=== PATIENT | male | born 1950 | race Caucasian/White ===

== ENCOUNTER 2018-11-21 07:07 | Outpatient (CLI) | payer BC, SELFPAY ==
[2018-11-21 08:07] LABS: Hemoglobin A1C 6.6 % (4.5-6.2)
[2018-11-21 09:13] LABS: Anion Gap 10.7 mmol/L (3-11); BUN 16 mg/dL (7-18); CO2 26.3 mmol/L (21.0-32.0); CREATININE 0.89 mg/dL (0.70-1.30); Calcium 9.2 mg/dL (8.5-10.1); Chloride 103 mmol/L (98-107); Cholesterol 181 mg/dL (50-200); Glucose 101 mg/dL (70-100); HDL Cholesterol 69 mg/dL (40-60); LDL CHOLESTEROL 92 mg/dL (<100); Potassium 4.6 mmol/L (3.5-5.1); Sodium 140 mmol/L (136-145); Triglyceride 83 mg/dL (30-150)
== END 2018-11-21 07:27 ==
PROVIDERS: PCP Family Medicine; Visit Provider Family Medicine
DX: I10 Essential (primary) hypertension (principal); E11.9 Type 2 diabetes mellitus without complications
CPT/HCPCS: 36415; 80048; 80061; 83721; 83036

== ENCOUNTER 2019-11-30 07:09 | Outpatient (CLI) | payer BC, SELFPAY ==
[2019-11-30 08:37] LABS: Anion Gap 8.5 mmol/L (3-11); BUN 16 mg/dL (7-18); CO2 28.5 mmol/L (21.0-32.0); CREATININE 0.88 mg/dL (0.70-1.30); Calcium 9.4 mg/dL (8.5-10.1); Calculated LDL 85 mg/dL (<100); Chloride 103 mmol/L (98-107); Cholesterol 175 mg/dL (<200); Glucose 116 mg/dL (74-106); HDL Cholesterol 75 mg/dL (40-60); Potassium 4.9 mmol/L (3.5-5.1); Sodium 140 mmol/L (136-145); Triglyceride 75 mg/dL (<150)
== END 2019-11-30 07:29 ==
PROVIDERS: PCP Family Medicine; Visit Provider Family Medicine
DX: E78.00 Pure hypercholesterolemia, unspecified (principal); I10 Essential (primary) hypertension
CPT/HCPCS: 36415; 80048; 80061

== ENCOUNTER 2019-11-30 14:15 | Outpatient (CLI) | payer BC, SELFPAY ==
--- NOTE | 2019-11-30 13:03 | DI.RAD_ITS ---
EXAM: XR FINGER LT LITTLE CLINICAL HISTORY: Swelling and pain left 5th finger M79.645. TECHNIQUE: 2D digital imaging was performed. COMPARISON: None. FINDINGS: BONES: No acute fracture is present. No bony destructive lesion is seen. JOINTS: At the proximal interphalangeal joint, there are prominent hypertrophic changes and marked na rrowing of the joint space. There are also erosive changes centrally. At the DIP joint, mild periar ticular spurring is noted. SOFT TISSUE: Soft tissue swelling. 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 DATA REPOSITORY: RADIATION DOSE DELIVERED:
== END 2019-11-30 14:35 ==
PROVIDERS: PCP Family Medicine; Visit Provider Family Medicine
DX: M79.645 Pain in left finger(s) (principal); M19.042 Primary osteoarthritis, left hand
CPT/HCPCS: 73140

== ENCOUNTER 2020-08-13 04:10 | Outpatient (CLI) | payer BC, SELFPAY ==
[2020-08-16 19:12] LABS: Patient Race White; SARS-CoV-2 RNA Undetected (Undetected); SARS-CoV-2 Specimen Source Nasal
== END 2020-08-13 04:30 ==
PROVIDERS: PCP Family Medicine; Visit Provider Family Medicine
DX: Z11.59 Encounter for screening for other viral diseases (principal)
CPT/HCPCS: U0003

== ENCOUNTER 2020-11-29 03:37 | Outpatient (CLI) | payer BC, SELFPAY ==
[2020-11-29 09:25] LABS: ALT 39 U/L (16-63); AST 18 U/L (15-37); Albumin 4.4 g/dL (3.4-5.0); Alkaline Phosphatase 50 U/L (46-116); Anion Gap 8.8 mmol/L (3-11); BUN 19 mg/dL (7-18); Bilirubin, Total 0.4 mg/dL (0.2-1.0); CO2 28.2 mmol/L (21.0-32.0); CREATININE 0.9 mg/dL (0.70-1.30); Calcium 9.4 mg/dL (8.5-10.1); Calculated LDL 100 mg/dL (<100); Chloride 105 mmol/L (98-107); Cholesterol 184 mg/dL (<200); Glucose 120 mg/dL (74-106); HDL Cholesterol 75 mg/dL (40-60); Potassium 5.5 mmol/L (3.5-5.1); Sodium 142 mmol/L (136-145); Total Protein 7.7 g/dL (6.4-8.2); Triglyceride 48 mg/dL (<150)
== END 2020-11-29 03:38 | disposition home or self-care (01) ==
LOC: LBO 03:37
PROVIDERS: PCP Family Medicine; Visit Provider Physician Assistant
DX: I10 Essential (primary) hypertension (principal)
CPT/HCPCS: 36415; 80053; 80061

== ENCOUNTER 2020-12-03 18:05 | Outpatient (REF) | payer BC, SELFPAY ==
[2020-12-03 18:32] LABS: COMMENT (LAB VIEW ONLY) 190.34 mg/dL
== END 2020-12-03 18:06 | disposition home or self-care (01) ==
LOC: LBN 18:05
PROVIDERS: PCP Family Medicine; Visit Provider Physician Assistant
DX: E11.9 Type 2 diabetes mellitus without complications (principal)
CPT/HCPCS: 82043; 82570

== ENCOUNTER 2020-12-06 03:33 | Outpatient (CLI) | payer BC, SELFPAY ==
[2020-12-06 10:04] LABS: Potassium 4.7 mmol/L (3.5-5.1)
[2020-12-06 10:09] LABS: COMMENT (LAB VIEW ONLY) 75.84 mg/dL
[2020-12-06 10:10] LABS: Microalb ug/mg Crea 127.8 ug/mg Cr
== END 2020-12-06 03:34 | disposition home or self-care (01) ==
LOC: LBO 03:33
PROVIDERS: Nurse Practitioner Family; PCP Family Medicine; Visit Provider Physician Assistant
DX: E87.5 Hyperkalemia (principal); R80.9 Proteinuria, unspecified
CPT/HCPCS: 36415; 82043; 82570; 84132

== ENCOUNTER 2021-05-30 03:38 | Outpatient (CLI) | payer MEDICARE, SELFPAY ==
[2021-05-30 08:05] LABS: Hemoglobin A1C 5.8 % (<5.7)
[2021-05-30 09:00] LABS: COMMENT (LAB VIEW ONLY) 85.73 mg/dL
[2021-05-30 09:01] LABS: Microalb ug/mg Crea 105.8 ug/mg Cr
[2021-05-30 09:03] LABS: ALT 36 U/L (16-63); AST 19 U/L (15-37); Alkaline Phosphatase 40 U/L (46-116); Anion Gap 6.4 mmol/L (3-11); BUN 20 mg/dL (7-18); Bilirubin, Total 0.4 mg/dL (0.2-1.0); CO2 29.6 mmol/L (21.0-32.0); CREATININE 0.9 mg/dL (0.70-1.30); Calcium 8.8 mg/dL (8.5-10.1); Chloride 106 mmol/L (98-107); Glucose 107 mg/dL (74-106); Sodium 142 mmol/L (136-145); Total Protein 6.9 g/dL (6.4-8.2)
== END 2021-05-30 03:39 | disposition home or self-care (01) ==
LOC: LBO 03:38
PROVIDERS: PCP Family Medicine; Visit Provider Family Medicine
DX: E11.9 Type 2 diabetes mellitus without complications (principal)
CPT/HCPCS: 36415; 80053; 82043; 82570; 83036

== ENCOUNTER 2021-07-21 02:02 | Outpatient (CLI) | payer MEDICARE, BC, SELFPAY ==
[2021-07-21 11:16] LABS: Source Nasal/Nares
[2021-07-21 14:48] LABS: COVID-19 PCR Negative (Negative)
== END 2021-07-21 02:03 | disposition home or self-care (01) ==
LOC: LBO 02:03
PROVIDERS: PCP Family Medicine; Visit Provider Surgery
DX: Z20.822 Contact with and (suspected) exposure to COVID-19 (principal); Z01.818 Encounter for other preprocedural examination
CPT/HCPCS: 87635

== ENCOUNTER 2021-10-29 09:47 | Outpatient (CLI) | payer MEDICARE, BC, SELFPAY ==
--- NOTE | 2021-10-29 08:00 | DI.RAD_ITS ---
Exam(s) XR WRIST RT COMPLETE EXAM: XR WRIST RT COMPLETE CLINICAL HISTORY: pain. TECHNIQUE: 2D digital imaging was performed. COMPARISON: No exams were available for comparison FINDINGS: BONES: No acute fracture is present. No bony destructive lesion is seen. JOINTS: There is mild dorsal tilt of the lunate. The scapholunate joint is not well profiled. There is severe narrowing of the joint space between the distal radius and scaphoid. There is spurring of the distal radius. There is also mild to moderate narrowing and spurring at the 1st carpal metacarp al joint SOFT TISSUE: Normal. IMPRESSION: Degenerative changes of the radial carpal and 1st carpometacarpal joints. DATA REPOSITORY: RADIATION DOSE DELIVERED:
== END 2021-10-29 09:48 | disposition home or self-care (01) ==
LOC: DIORS 09:48
PROVIDERS: PCP Family Medicine; Referring Provider Family Medicine; Visit Provider Student in an Organized Health Care Education/Training Program
DX: M25.531 Pain in right wrist (principal); M18.11 Unilateral primary osteoarthritis of first carpometacarpal joint, right hand; M77.8 Other enthesopathies, not elsewhere classified; M65.342 Trigger finger, left ring finger; M67.431 Ganglion, right wrist
CPT/HCPCS: 20550; 20600; 99213; 73110; J1030

== ENCOUNTER 2021-12-01 04:02 | Outpatient (CLI) | payer MEDICARE, SELFPAY ==
[2021-12-01 09:36] LABS: Source Nasal/Nares
[2021-12-01 12:56] LABS: COVID-19 PCR Negative (Negative)
== END 2021-12-01 04:03 | disposition home or self-care (01) ==
PROVIDERS: PCP Family Medicine; Visit Provider Student in an Organized Health Care Education/Training Program
DX: Z20.822 Contact with and (suspected) exposure to COVID-19 (principal); Z01.818 Encounter for other preprocedural examination
CPT/HCPCS: 87635; U0005

== ENCOUNTER 2021-12-02 12:26 | Day surgery (SDC) | payer MEDICARE, SELFPAY ==
[2021-12-02 12:56] VITALS: BP 155/93; PULSE 62; RESP 16; TEMP 36.5; O2SAT 98
--- NOTE | 2021-12-02 12:56 | W.ANESPRE ---
General Info Date of Service Date Performed: 12/02/21 Height: 6 ft 6 in Weight: 109.769 kg Body Mass Index (BMI): 27.9 Surgical Procedure: Operation Date: 12/02/21 15:25 Proposed Procedure Side Surgeon p Wrist Ganglion Cyst Removal Right Kannan Mcdonough MD Meds Allergies and Home Medications Allergies Allergy/AdvReac Type Severity Reaction Status Date / Time No Known Allergies Allergy Verified 12/02/21 12:48 Home Medication Medication Instructions Recorded aspirin 81 mg tablet,delayed 81 mg PO DAILY tab-cap 12/12/12 release (Aspir-) adjuvant AS01B (PF)vial 1 of 2 0.5 ml IM .COMPLEX #0.5 ml 06/04/21 (Shingrix Adjuvant Component-PF) losartan 25 mg tablet 25 mg PO DAILY #90 tab-cap 11/28/21 simvastatin 40 mg tablet 20 mg PO DAILY #45 tab-cap 11/28/21 metformin 500 mg 24 hr 1,000 mg PO QAM 12/02/21 tablet,extended release Current Visit Medications: Current Medications Generic Name Dose Route Start Last Admin Trade Name Freq PRN Reason Stop Dose Admin Ringer's Solution 1,000 mls @ 80 mls/hr 12/02/21 06:00 IV 12/25/21 23:59 INFUSION KODI Cefazolin Sodium/Dextrose 2 gm in 50 mls @ 100 mls/hr 12/02/21 06:00 Ancef Duplex IVPB 12/02/21 23:59 PREOP KODI IV Miscellaneous Supplies 1 each 12/02/21 06:00 Iv Access IV 12/25/21 23:59 DIRECTED KODI Sodium Chloride 0 ml 12/02/21 06:00 Normal Saline Flush 10 Ml Syr IV 12/25/21 23:59 PRN PRN Sodium Chloride 0 ml 12/02/21 06:00 Normal Saline 10 Ml Vial IJ 12/25/21 23:59 DIRECTED PRN Sterile Water 0 ml 12/02/21 06:00 Water,Injection,Sterile 10 Ml Vial IJ 12/25/21 23:59 DIRECTED PRN PFSH Active Problems Active Problems: Problem Status Onset Code Hypercholesterolemia 12/15/12 E78.00 Essential hypertension 07/26/15 I10 Osteoarthritis of hands, bilateral M19.041, M19.042 Asymptomatic superficial varicosities of both lower extremities I83.93 Superficial phlebitis and thrombophlebitis of right lower extremity I80.01 Serum potassium elevated E87.5 Diabetes mellitus with microalbuminuria, without long-term current use of insulin E11.29, R80.9 Trigger finger, left ring finger M65.342 Ganglion cyst of dorsum of right wrist M67.431 Medical History Medical History Right calf pain was torn gastrocnemius muscle Surgical History Surgical History (Updated 12/02/21 @ 12:53 by Brenda Cardoso) History of eyelid surgery bilateral Status post umbilical hernia repair, follow-up exam Tobacco Smoking/Tobacco Use Status: Never Passive smoking exposure: No Alcohol Alcohol Intake: current Alcohol intake frequency: 0-2 drinks per day Alcohol type: hard liquor Substance Use Substance use: Never Substance use type: does not use Vital Signs and Lab Results Vital Signs Most Recent Vital Signs in EMR: Temp Pulse Resp BP Pulse Ox 36.5 C 62 16 155/93 H 98 12/02/21 12:56 12/02/21 12:56 12/02/21 12:56 12/02/21 12:56 12/02/21 12:56 Lab Results Blood Type / Crossmatch: No Data to Display Complete Blood Count: No Data to Display Complete Metabolic Panel: No Data to Display Liver Function Panel: No Data to Display Coagulation Panel: No Data to Display Cardiac Panel: No Data to Display Arterial Blood Gas: No Data to Display Venous Blood Gas: No Data to Display Pancreas Panel: No Data to Display Thyroid Panel: No Data to Display Infectious Disease: Coronavirus (COVID-19)(PCR) Negative (Negative) 12/01/21 08:30 12/01/21 Coronavirus 2019 Source Nasal/Nares 12/01/21 08:30 12/01/21 Blood Cultures: No Data to Display Toxicology Panel: No Data to Display Anesthesia Assessment and Plan Anesthesia History Personal History: No History of Anesthesia Complications Family History: No Family History of Anesthesia Complications Exercise Tolerance Exercise Tolerance: Metabolic Equivalents>4 Cardiac & Pulmonary Exam Cardiac Exam: Normal S1/S2 Heart Sounds Pulmonary Exam: Clear Bilateral Breath Sounds Implantable Cardiac Device Does patient have a Pacemaker or an ICD?: No Airway Exam Known Difficult Airway: No Mallampati Class: 1 Mouth Opening: Normal (> 3cm) Thyromental Distance: Greater than 3 cm Neck Range of Motion: Full ROM Neck Circumference: Normal Teeth Condition: Normal Dentition ASA Classification ASA Score: ASA 2 Emergency Case?: No NPO Status NPO Status: NPO Clears >2 hours, Solids >8 hours Anesthesia Plan Resuscitation Status: Full Code Anesthesia Technique: General Anesthesia Airway Planned: Natural Airway Monitors Used: Standard Monitors Preoperative Comments:: 71 yo male for ganglion cyst removal. Sig PMHx: HTN (losartan), DM (metformin), never smoker, occ Etoh.
[2021-12-02] MEDS: Lactated Ringers 1,000 ML 80 ML IV (13:15)
[2021-12-02 13:29] VITALS: BMI 27.9
--- NOTE | 2021-12-02 14:18 | W.PREOPHP ---
Assessment and Plan Assessment and plan (1) Ganglion cyst of volar aspect of right wrist: Status: Acute Assessment and plan: Josue is a 71-year-old who has a volar wrist ganglion cyst about the right wrist. He has had this for some time and it continues interfere daily activities and causes some pain. We had a previous discussion in the office about treatment options and he elects to proceed with excision. I reviewed the risk of the procedure to include bleeding, infection, pain, stiffness, recurrence, damage nerves and vessels. Despite these risk, he elects to proceed. History of Present Illness Narrative: Josue is a 71-year-old male who has a volar wrist cyst about the right hand. Please see previous office note for complete details of his history. He has had intermittent pain, especially at night, about the volar aspect of his right wrist with a notable cyst. He denies numbness or tingling. He denies previous surgery. He has had no changes to his health. COVID-19 negative. Review of Systems All systems reviewed & are unremarkable except as noted in HPI and below PFSH All Active Problems (Updated 12/02/21 @ 14:19 by Kannan Mcdonough MD) Ganglion cyst of volar aspect of right wrist (Acute) Hypercholesterolemia (Chronic 12/15/12) Essential hypertension (Chronic 07/26/15) Osteoarthritis of hands, bilateral (Chronic) Asymptomatic superficial varicosities of both lower extremities (Acute) Superficial phlebitis and thrombophlebitis of right lower extremity (Acute) Serum potassium elevated (Acute) Diabetes mellitus with microalbuminuria, without long-term current use of insulin (Chronic) Trigger finger, left ring finger (Acute) injection: 10/29/2021 Ganglion cyst of dorsum of right wrist (Acute) Medical History Right calf pain was torn gastrocnemius muscle Surgical History History of eyelid surgery bilateral Status post umbilical hernia repair, follow-up exam Family History Mother , 79 No problems noted. Father , 79 No problems noted. Son No problems noted. Son No problems noted. Daughter No problems noted. Social History Smoking/Tobacco Use Status: Never Smoking risk assessment performed?: Yes Alcohol Intake: current Alcohol Intake frequency: 0-2 drinks per day Alcohol type: hard liquor Drug use: Never Substance use type: does not use Details: alcohol: t-1 glas of wine with meal Caregiver/Support person: No Household members: spouse Housing: house Number of Children: 3 number of grandchildren: 0 Communication Needs: None Education Level: college Do you need help understanding health information?: Never current occupation: [employer]; retired in 2016. Pets and animals: No Sexually active: Yes Do you think of yourself as: straight/heterosexual Current gender identity: male What is your relationship status?: How often do you talk on the phone with friends or family?: decline to answer How often do you get together with friends or relatives?: decline to answer How often do you attend confucianism or yazidism services?: decline to answer Do you belong to any clubs or organized social groups?: decline to answer Panel score (0-1 are the most socially isolated patients): 1 What type of physical activity do you participate in: walking Duration: decline to answer Frequency: 1-2 times per week Miriam/Cheondoism: Nondenominational Special miriam needs: No Seatbelt use: always Drive intox or ride w/intox bus driver school: No Do you feel safe at home: Yes Do you feel safe in your relationship?: Yes Meds Allergies and Home Medications Allergies Allergy/AdvReac Type Severity Reaction Status Date / Time No Known Allergies Allergy Verified 12/02/21 12:48 Home Medications Medication Instructions Recorded Confirmed Type aspirin 81 mg tablet,delayed 81 mg PO DAILY tab-cap 12/12/12 12/02/21 History release (Aspir-) adjuvant AS01B (PF)vial 1 of 2 0.5 ml IM .COMPLEX #0.5 ml 06/04/21 12/02/21 Rx (Shingrix Adjuvant Component-PF) losartan 25 mg tablet 25 mg PO DAILY #90 tab-cap 11/28/21 12/02/21 Rx simvastatin 40 mg tablet 20 mg PO DAILY #45 tab-cap 11/28/21 12/02/21 Rx metformin 500 mg 24 hr 1,000 mg PO QAM 12/02/21 12/02/21 History tablet,extended release Exam Resp Auscultation: clear to auscultation bilaterally Cardio Rate: regular rate Rhythm: regular rhythm Results Last Vital Signs Temp 36.5 C 12/02/21 12:56 Pulse 62 12/02/21 12:56 Resp 16 12/02/21 12:56 BP 155/93 H 12/02/21 12:56 Pulse Ox 98 12/02/21 12:56
[2021-12-02] MEDS: ceFAZolin 2 GM/50 ML BAG IVPB (14:25)
--- NOTE | 2021-12-02 14:29 | PDOC.DSDIS_ITS ---
Discharge Plan Disposition Patient Disposition: HOME Condition: Good Discharge Details Reason For Visit: Right wrist ganglion cyst Attending Provider: Kannan Mcdonough Primary Care Provider: Luciana Brothers Home Meds and New Rx's Prescriptions: Continued Shingrix Adjuvant Component-PF Suspension 0.5 ml IM .COMPLEX Qty: 0.5 0RF Rx Instructions: 0.5 mL IM Two dose series. Initial vaccination, then repeat 0.5mL dose 2-6 months after initial aspirin [Aspir-81] 81 MG tablet,delayed release (DR/EC) 81 mg PO DAILY 0RF losartan 25 mg tablet 25 mg PO DAILY Qty: 90 4RF Rx Instructions: Replaces lisinopril simvastatin 40 mg tablet 20 mg PO DAILY Qty: 45 3RF metformin 500 mg tablet,ER igor.retention 24 hr 1,000 mg PO QAM 0RF Discharge Instructions Additional Instructions: Ganglion Cyst Discharge Instructions Activity: You should keep the hand elevated as much as possible for the first few days. You may use the other fingers as tolerated but avoid trying to do too much too soon. You may perform light activities with the splint in place. Dressing/Cast: Your dressing should stay in place for 3 days following surgery. May remove and cover a light gauze dressing or band-aide. Medications: - You should take Tylenol and Ibuprofen for baseline pain control. - Typically this does not require narcotic medication - contact office if experiencing more discomfort. - You may apply ice over the wrist. Follow-up: 7-10 days Referrals: Kannan Mcdonough MD [ [facility] STAFF PHYSICIAN] - Activity:: Elevate Remove Dressings/Wound Care:: 72 hours Shower/Bathe:: 72 hours Diet:: As Tolerated Discharge Orders Discharge Orders: Discharge Order (Routine); Ordered 12/02/21 Ordered By: Marisa Mcdonnell DS: Diagnosis Discharge Diagnosis (1) Ganglion cyst of volar aspect of right wrist: Status: Acute
[2021-12-02] MEDS: Sodium Bicarbonate 50 MEQ/50 ML VIAL (14:46)
[2021-12-02 15:01] VITALS: BP 139/90; PULSE 62; RESP 16; TEMP 36.5; O2SAT 96
--- NOTE | 2021-12-02 15:17 | W.ANESPOSTOP ---
Postoperative Evaluation Date, Time and Location Date Performed: 12/02/21 Time Performed: 15:17 Patient Location: Day Surgery Unit Vital Signs Most Recent Imported Vital Signs: Most Recent Vital Signs Temp Pulse Resp BP Pulse Ox 36.5 C 62 16 155/93 H 98 12/02/21 12:56 12/02/21 12:56 12/02/21 12:56 12/02/21 12:56 12/02/21 12:56 Most Recent Manually Entered Vital Signs: Adult Blood Pressure: 142/85 Heart Rate: 68 Respirations: 18 Oxygen Saturation (%): 98 Temperature (C): 36.4 C Pain Score (0-10 Scale): 0 Pain Score Most Recent Pain Score: Most Recent Pain Score Pain Level 1 12/02/21 12:56 Assessment Mental Status: Awake (Alert & Oriented to Patient Baseline) Airway and Respiratory Function: Patent airway with normal (patient baseline) respiratory exam Cardiovascular Function: Hemodynamically Stable Hydration Status: Adequately Hydrated Nausea & Vomiting: No Nausea or Vomiting Pain: Pt. Denies Any Pain Peripheral Nerve Block: Patient did not receive a nerve block
[2021-12-02 15:18] VITALS: BP 142/85; PULSE 68; RESP 18; TEMPC 36.4; O2SAT 98
[2021-12-02 15:25] VITALS: BP 160/81; PULSE 57; RESP 16; TEMP 36.3; O2SAT 96
--- NOTE | 2021-12-02 20:35 | ROE_ITS ---
Date of service: 12/02/21 Time of Service: 14:30 Operative Note Operative Note DATE OF PROCEDURE: 12/02/21 PRE-OP DIAGNOSIS: Right Volar Wrist Ganglion Cyst POST-OP DIAGNOSIS: other (Right Volar Wrist Lipoma) PROCEDURE: Excision of volar wrist mass - right wrist SURGEON: Kannan Mcdonough ANESTHESIA TYPE: General:No Airway Refer to Anesthesia Record ESTIMATED BLOOD LOSS: 5 PATHOLOGY: none sent TOURNIQUET TIME: 0 COMPLICATIONS: None Patient was transported to: PACU Patient's condition: stable Indications: Josue is a 71 year old male who I have seen for a volar wrist mass, suspected ganglion cyst. It has continued to be bothersome despite some conservative options. Its size and interference with activities continues to cause problems. Therefore, I offered excision of the volar wrist mass. I discussed the risks to include bleeding, infection, pain, stiffness, damage to nerve and vessels, recurrence. Despite these risks, he elects to proceed. Findings: In the typical location of volar wrist cyst there was a lipomatous mass. 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 It was located between the flexor carpi radialis and the radial artery sheath. It extended to the level of the scaphoid and about 2 cm proximal to the volar radiocarpal joint. It was removed piecemeal. There did seem to be a small cystic structure arising from the radial scaphoid joint volarly but without any cystic fluid and appear to be old in nature. Procedure Description: Josue was greeted in the preoperative holding area. Identity was confirmed and the correct site was identified and marked. Consent was reviewed the patient and signed. History and physical was updated. The patient to take not to the operating room placed in supine position. All bony prominences were well- padded. A nonsterile tourniquet was placed high up onto the right arm. The arms and prepped with ChloraPrep and draped in a standard fashion. The surgical site was marked on the skin and injected with 2% lidocaine with epinephrine buffered with sodium bicarbonate. The skin was incised sharply. Deeper dissection was carried out with tenotomy scissors and careful attention to vascular branches in this area. Any bleeding was cauterized with bipolar electrocautery. There is no clear mass seen initially except for some prominence to the radial side of flexor carpi radialis. Therefore I incised the sheath of the flexor carpi radialis on his radial side taking care to be ulnar of the radial artery. When this was incised there is immediate expression of some fatty tissue. The space between the flexor carpi radialis and the radial artery was further opened proximally and distally where there is notable fat. It was different than the synovium of the surrounding area and the flexor carpi radialis and the underlying flexor pollicis longus. Once again, the radial artery was radial to this area. I used a rongeur to remove this fatty tissue. It was not a single fatty structure but multiple pieces of fat which were easily removed without any notable vascular input no other suspicious findings. After removing this fat there was a small cystic structure which appeared to be arising from the radial scaphoid joint which is also removed with a rongeur. The wound was irrigated. It was further inspected and showed no significant residual fatty tissue. There was a lot of synovitis seen around the flexor pollicis longus which was left intact. The wound was then thoroughly irrigated. The wound was dry. The deep layer was reapproximated with a 3-0 Vicryl. The skin was closed with a running 4-0 Monocryl followed by skin glue, gauze, and Neymar wrap. The wrist was placed into a removable wrist brace. At the end the case all counts were correct. The patient was awakened from anesthesia and taken to the PACU in stable condition. There were no noted complications.
== END 2021-12-02 15:50 | disposition home or self-care (01) ==
PROVIDERS: PCP Family Medicine; Visit Provider Student in an Organized Health Care Education/Training Program
PROC: (CPT 25111; principal; 2021-12-02 15:15)
DX: M67.431 Ganglion, right wrist (principal); I10 Essential (primary) hypertension; E78.00 Pure hypercholesterolemia, unspecified; E11.9 Type 2 diabetes mellitus without complications
CPT/HCPCS: 25111; J0690; J1885; J2001

== ENCOUNTER → 2021-12-12 08:16 | Outpatient (BNVA) | payer MEDICARE, SELFPAY | PROVIDERS: PCP Family Medicine; Referring Provider Family Medicine; Visit Provider Student in an Organized Health Care Education/Training Program | DX: M67.431 Ganglion, right wrist (principal) ==

== ENCOUNTER 2021-12-16 03:06 | Outpatient (CLI) | payer MEDICARE, SELFPAY ==
[2021-12-16 13:43] LABS: Hemoglobin A1C 6.2 % (<5.7)
[2021-12-16 14:05] LABS: Anion Gap 8.9 mmol/L (3-11); BUN 20 mg/dL (7-18); CO2 25.1 mmol/L (21.0-32.0); CREATININE 0.9 mg/dL (0.70-1.30); Calcium 9.3 mg/dL (8.5-10.1); Chloride 103 mmol/L (98-107); Glucose 97 mg/dL (74-106); Potassium 4.8 mmol/L (3.5-5.1); Sodium 137 mmol/L (136-145)
[2021-12-16 14:22] LABS: COMMENT (LAB VIEW ONLY) 64.82 mg/dL
[2021-12-16 14:23] LABS: Microalb ug/mg Crea 184.7 ug/mg Cr
== END 2021-12-16 03:07 | disposition home or self-care (01) ==
LOC: LBO 03:06
PROVIDERS: PCP Family Medicine; Visit Provider Family Medicine
DX: E11.29 Type 2 diabetes mellitus with other diabetic kidney complication (principal); I10 Essential (primary) hypertension; R80.9 Proteinuria, unspecified; E78.00 Pure hypercholesterolemia, unspecified
CPT/HCPCS: 36415; 80048; 82043; 82570; 83036

== ENCOUNTER 2022-06-02 21:22 | Emergency (ER) | payer MEDICARE, BC, SELFPAY ==
--- NOTE | 2022-06-02 21:41 | ED.GENADUL_ITS ---
Discharge Plan Disposition Patient Disposition: HOME Condition: Good Discharge Details Clinical Impression: Leg varices, Hemorrhage of skin lesion Primary Care Provider: Luciana Brothers ED Provider: Santosh Blanco Home Meds and New Rx's Prescriptions: No Action aspirin [Aspir-81] 81 MG tablet,delayed release (DR/EC) 81 mg PO DAILY losartan 25 mg tablet 25 mg PO DAILY Qty: 90 4RF Rx Instructions: Replaces lisinopril simvastatin 40 mg tablet 20 mg PO DAILY Qty: 45 3RF metformin 500 mg tablet,ER igor.retention 24 hr 1,000 mg PO QAM Discharge Instructions Additional Instructions: At this time your peripheral Versie has stopped bleeding thankfully. Please keep it wrapped in bandage for the next 24 to 48 hours. As you know, do your best to avoid any trauma or picking to those areas. If bleeding does recur, please use the Neymar wrap as directed. If you notice any worsening of your symptoms, or any new symptoms such as vomiting, diarrhea, fever, chills, shortness of breath, chest pain, numbness, weakness, or fainting , please return immediately to the emergency department for reevaluation. Please follow up with your primary care provider as soon as possible for reassessment and reevaluation. As always, it was a pleasure participating in your medical care today. Referrals: Luciana Brothers MD [Primary Care Provider] - Medical Decision Making 71-year-old male with varicose veins of the lower extremities presents today for plating of his left lower extremity. He states that he accidentally kicked it with his fingernail, had immediate bleeding over the last 30 minutes. It was excessive and he was unable to stop it. He wrapped it with paper towels and Saran wrap and came to the ER for further assessment. He denies any lightheadedness. He is on aspirin but does not take any anticoagulants. No trauma otherwise. No other complaints at this time. Exam demonstrates a well-appearing male, there is a varicose vein on the medial posterior left calf, that did have an area of excessive blood around however there is no bleeding at this time. Surgicel was placed over that area, and the area was wrapped and bandaged with an Neymar wrap. Patient tolerated this well. Patient's vital signs are stable. No indication of excessive blood loss requiring transfusion. Patient otherwise stable. Discussed red flags which to return. I have extensively reviewed the treatment plan and discharge instructions with the patient. I have addressed all patient concerns at this time. The patient was made aware of what symptoms to monitor for that would warrant a return to the emergency department. Discussed the plan with the patient, they demonstrate verbal understanding and agreement with our assessment and plan at this time. The documentation in this chart was dictated using [employer] dictation software. Please excuse any dictation errors. HPI General Date/Time Provider Initiated Documentation: 06/02/22 21:41 . HPI Narrative: 71-year-old male with varicose veins of the lower extremities presents today for plating of his left lower extremity. He states that he accidentally kicked it with his fingernail, had immediate bleeding over the last 30 minutes. It was excessive and he was unable to stop it. He wrapped it with paper towels and Saran wrap and came to the ER for further assessment. He denies any lightheadedness. He is on aspirin but does not take any anticoagulants. No t rauma otherwise. No other complaints at this time. Related Data Home Medications Medication Instructions Recorded Confirmed aspirin 81 mg tablet,delayed 81 mg PO DAILY 12/12/12 12/17/21 release (Aspir-) losartan 25 mg tablet 25 mg PO DAILY #90 tab-caps 11/28/21 12/17/21 simvastatin 40 mg tablet 20 mg PO DAILY #45 tab-caps 11/28/21 12/17/21 metformin 500 mg 24 hr 1,000 mg PO QAM 12/02/21 12/17/21 tablet,extended release Previous Rx's Medication Instructions Recorded losartan 25 mg tablet 25 mg PO DAILY #90 tab-caps 11/28/21 simvastatin 40 mg tablet 20 mg PO DAILY #45 tab-caps 11/28/21 Allergies Allergy/AdvReac Type Severity Reaction Status Date / Time No Known Allergies Allergy Verified 12/17/21 08:23 Review of Systems All systems reviewed & are unremarkable except as noted in HPI and below PFSH All Active Problems Leg varices (Acute) Hemorrhage of skin lesion (Acute) Hypercholesterolemia (Chronic 12/15/12) Essential hypertension (Chronic 07/26/15) Osteoarthritis of hands, bilateral (Chronic) Asymptomatic superficial varicosities of both lower extremities (Acute) Superficial phlebitis and thrombophlebitis of right lower extremity (Acute) Diabetes mellitus with microalbuminuria, 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 Father , 79 No problems noted. Son No problems noted. Son No problems noted. Daughter No problems noted. Social History Smoking/Tobacco Use Status: Never Second Hand Exposure: Yes Smoking risk assessment performed?: Yes Alcohol Intake: current Alcohol Intake frequency: 0-2 drinks per day Alcohol type: hard liquor Drug use: Never Substance use type: does not use Details: alcohol: t-1 glas of wine with meal Caregiver/Support person: Yes Household members: spouse Housing: house Number of Children: 3 number of grandchildren: 0 Communication Needs: None Education Level: college current occupation: [employer]; retired in 2016. Pets and animals: No Sexually active: No Do you think of yourself as: straight/heterosexual Current gender identity: male What is your relationship status?: How often do you talk on the phone with friends or family?: decline to answer How often do you get together with friends or relatives?: decline to answer How often do you attend anabaptism or yazdanism services?: decline to answer Do you belong to any clubs or organized social groups?: decline to answer Panel score (0-1 are the most socially isolated patients): 1 What type of physical activity do you participate in: walking Duration: 30-45 minutes/day Frequency: 3-4 times per week Miriam/Nondenominational: Roman Catholic Seatbelt use: always Drive intox or ride w/intox 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 3.ENT: Atraumatic external nose and ears. Moist MM. Neck: Symmetric, trachea midline, No thyromegaly. 4.CVS: +S1/S2, No murmurs or gallops. Peripheral pulses 2+ and equal in all extremities. Brisk capillary refill in all extremities. 5.RESP: Unlabored respiratory effort. Clear to auscultation bilaterally. No wheezes rales or rhonchi 6.GI: Soft, Nontender/Nondistended, No hepatosplenomegaly. No guarding or rebound. 7.MSK: Normocephalic/Atraumatic, Extremities w/o deformity or ttp No cyanosis or clubbing, Normal movement of all extremities. The medial aspect of the patient's left calf demonstrates varicosity with a excessive amount of blood all around it, but it looks like the bleeding has now stopped. No active bleeding currently. 8.Skin: Warm, Dry. No rashes or lesions. 9.Neuro: gusset ripper II-XII grossly intact. Sensation grossly intact, no focal neurologic deficits. 10.Psych: (AAO) x3. Appropriate mood and affect
[2022-06-02 22:00] VITALS: BP 153/94; PULSE 77; RESP 16; TEMP 36.6; O2SAT 96
[2022-06-02] MEDS: Cellulose,Oxidized 2X3 PKT 1 EACH MC (22:01)
== END 2022-06-02 22:00 | disposition home or self-care (01) ==
PROVIDERS: Emergency Provider Student in an Organized Health Care Education/Training Program; PCP Family Medicine
DX: I83.92 Asymptomatic varicose veins of left lower extremity (principal); L98.8 Other specified disorders of the skin and subcutaneous tissue
CPT/HCPCS: 99281; 99282

== ENCOUNTER 2022-06-25 04:21 | Outpatient (CLI) | payer MEDICARE, BC, SELFPAY ==
[2022-06-25 08:20] LABS: Hemoglobin A1C 6.8 % (<5.7)
[2022-06-25 09:10] LABS: COMMENT (LAB VIEW ONLY) 100.49 mg/dL; Microalb ug/mg Crea 224.8 ug/mg Cr
== END 2022-06-25 04:22 | disposition home or self-care (01) ==
LOC: LBO 04:21
PROVIDERS: PCP Family Medicine; Visit Provider Family Medicine
DX: E11.29 Type 2 diabetes mellitus with other diabetic kidney complication (principal); R80.9 Proteinuria, unspecified
CPT/HCPCS: 36415; 82043; 82570; 83036

== ENCOUNTER 2022-07-28 03:12 | Outpatient (CLI) | payer MEDICARE, BC, SELFPAY ==
[2022-07-28 08:35] LABS: Anion Gap 8.1 mmol/L (3-11); BUN 20 mg/dL (7-18); CO2 27.9 mmol/L (21.0-32.0); CREATININE 0.9 mg/dL (0.70-1.30); Calcium 9.3 mg/dL (8.5-10.1); Chloride 106 mmol/L (98-107); Estimated GFR 92.45 (mL/min/1.73m2); Glucose 135 mg/dL (74-106); Potassium 4.8 mmol/L (3.5-5.1); Sodium 142 mmol/L (136-145)
== END 2022-07-28 03:13 | disposition home or self-care (01) ==
LOC: LBO 03:12
PROVIDERS: PCP Family Medicine; Visit Provider Family Medicine
DX: I10 Essential (primary) hypertension (principal)
CPT/HCPCS: 36415; 80048

== ENCOUNTER → 2022-10-26 14:43 | Outpatient (BNVA) | payer MEDICARE, BC, SELFPAY | PROVIDERS: PCP Family Medicine; Referring Provider Family Medicine; Visit Provider Student in an Organized Health Care Education/Training Program | DX: M65.342 Trigger finger, left ring finger (principal); R22.32 Localized swelling, mass and lump, left upper limb | CPT/HCPCS: 20550; J1030 ==

== ENCOUNTER 2022-12-16 03:32 | Outpatient (CLI) | payer MEDICARE, BC, SELFPAY ==
[2022-12-16 12:48] LABS: ALT 59 U/L (16-63); AST 23 U/L (15-37); Albumin 4.2 g/dL (3.4-5.0); Anion Gap 5.5 mmol/L (3-11); BUN 19 mg/dL (7-18); Bilirubin, Total 0.5 mg/dL (0.2-1.0); CO2 29.5 mmol/L (21.0-32.0); Calcium 9.4 mg/dL (8.5-10.1); Chloride 103 mmol/L (98-107); Estimated GFR 80.97 (mL/min/1.73m2); Glucose 174 mg/dL (74-106); Potassium 4.9 mmol/L (3.5-5.1); Sodium 138 mmol/L (136-145); Total Protein 7.7 g/dL (6.4-8.2)
[2022-12-16 13:04] LABS: Alkaline Phosphatase 40 U/L (46-116)
[2022-12-16 13:10] LABS: Hemoglobin A1C 7.4 % (<5.7)
[2022-12-16 13:20] LABS: COMMENT (LAB VIEW ONLY) 103.44 mg/dL
[2022-12-16 13:37] LABS: Microalb ug/mg Crea 256.9 ug/mg Cr
== END 2022-12-16 03:33 | disposition home or self-care (01) ==
LOC: LOS 03:32
PROVIDERS: PCP Family Medicine; Visit Provider Family Medicine
DX: R80.9 Proteinuria, unspecified (principal); E11.29 Type 2 diabetes mellitus with other diabetic kidney complication; I10 Essential (primary) hypertension
CPT/HCPCS: 36415; 80053; 82043; 82570; 83036

== ENCOUNTER 2023-07-23 08:41 | Outpatient (CLI) | payer MEDICARE, BC, SELFPAY ==
[2023-07-23 12:57] LABS: HCT 43.6 % (40.0-50.0); HGB 14.4 g/dL (13.5-17.5); MCV 88 fL (80-95); MPV 9.9 fL (8.0-11.0); Platelet Count 254 10^3/uL (130-400); RBC 4.96 10^6/uL (4.36-5.78); RDW 12.1 % (11.8-14.1); RDW-SD 38.9 fL; WBC 6.01 10^3/uL (4.4-10.8)
[2023-07-23 13:25] LABS: ALT 82 U/L (16-63); AST 25 U/L (15-37); Alkaline Phosphatase 53 U/L (46-116); Anion Gap 9.5 mmol/L (3-11); BUN 17 mg/dL (7-18); Bilirubin, Total 0.4 mg/dL (0.2-1.0); CO2 26.5 mmol/L (21.0-32.0); CREATININE 1.1 mg/dL (0.70-1.30); Calcium 9.7 mg/dL (8.5-10.1); Chloride 98 mmol/L (98-107); Estimated GFR 72.22 (mL/min/1.73m2); Glucose 330 mg/dL (74-106); Potassium 4.5 mmol/L (3.5-5.1); Sodium 134 mmol/L (136-145); Total Protein 7.4 g/dL (6.4-8.2)
[2023-07-23 13:26] LABS: Hemoglobin A1C 10.2 % (<5.7)
[2023-07-23 13:30] LABS: COMMENT (LAB VIEW ONLY) 77.37 mg/dL
[2023-07-23 13:32] LABS: Microalb ug/mg Crea 160.9 ug/mg Cr
== END 2023-07-23 08:42 | disposition home or self-care (01) ==
LOC: LBO 08:41
PROVIDERS: PCP Family Medicine; Visit Provider Family Medicine
DX: E11.29 Type 2 diabetes mellitus with other diabetic kidney complication (principal); R80.9 Proteinuria, unspecified; F10.90 Alcohol use, unspecified, uncomplicated
CPT/HCPCS: 36415; 80053; 85027; 82043; 82570; 83036

== ENCOUNTER 2023-08-04 06:10 | Day surgery (SDC) | payer MEDICARE, BC, SELFPAY ==
[2023-08-04 06:30] VITALS: BP 148/90; PULSE 64; RESP 20; TEMP 36.3; O2SAT 97
--- NOTE | 2023-08-04 07:10 | NUR.NOTE ---
0710: aware of pt's blood sugar today, 278 and most recent A1c 07/23/23, 10.2. spoke to pt. about these numbers and increased risk of infection, pt. wants to proceedNursing Note:
--- NOTE | 2023-08-04 07:15 | PDOC.DSDIS_ITS ---
Date of service: 08/04/23 Time of Service: 07:15 Discharge Plan Disposition Patient Disposition: Home Condition: Good Discharge Details Reason For Visit: LRF trigger release Attending Provider: Kannan Mcdonough Primary Care Provider: Luciana Brothers Home Meds and New Rx's Prescriptions: New acetaminophen 500 mg tablet 1,000 mg PO TID Qty: 90 0RF ibuprofen 600 mg tablet 600 mg PO TID PRN (Reason: pain) Qty: 90 0RF Continued simvastatin 20 mg tablet 20 mg PO DAILY Qty: 90 3RF amlodipine 5 mg tablet 5 mg PO DAILY Qty: 90 3RF metformin 500 mg tablet,ER igor.retention 24 hr 2,000 mg PO QAM Qty: 360 3RF losartan 100 mg tablet 100 mg PO DAILY Qty: 90 3RF (DME) Dexcom G7 Sensor Device See Rx Instructions .Route Qty: 1 12RF Rx Instructions: As directed (DME) Dexcom G7 Financial Planning Assistant Misc See Rx Instructions .Route Qty: 1 0RF Rx Instructions: As directed semaglutide 3 mg tablet 3 mg PO DAILY 30 Days Qty: 30 0RF Patient Comments: pt. states he has not started taking yet (DME) lancets Misc See Rx Instructions .MEDSUPPLY Qty: 100 3RF Rx Instructions: As directed to check daily blood glucose. No insulin. Dispense covered brand. Dx: E11.9 to maintain HbA1c less than 7%. (DME) Blood Glucose Test Strip See Rx Instructions .MEDSUPPLY Qty: 100 3RF Patient Comments: pt. states he has done it once and it was in the 300s Rx Instructions: As directed to check daily blood glucose. No insulin. Dispense covered brand. Dx: E11.9 to maintain HbA1c less than 7%. (DME) blood-glucose meter Misc See Rx Instructions .MEDSUPPLY Qty: 1 0RF Rx Instructions: As directed to check daily blood glucose. No insulin. Dispense covered brand. Dx: E11.9 to maintain HbA1c less than 7%. insulin glargine [Lantus Solostar U-100 Insulin] 100 unit/mL (3 mL) insulin pen 20 unit subcut QAM Qty: 15 0RF Patient Comments: pt. states he has not used yet (DME) pen needle, diabetic [1st Tier Unifine Pentips Plus] 31 gauge x 1/4 needle See Rx Instructions .Route Qty: 100 3RF Rx Instructions: As directed aspirin [Aspir-81] 81 MG tablet,delayed release (DR/EC) 81 mg PO DAILY Discharge Instructions Stand Alone Forms: Sharonda Holt Finger Release Referrals: Kannan Mcdonough MD [ [facility] STAFF PHYSICIAN] - Activity:: Activity as Tolerated Remove Dressings/Wound Care:: 48 hours Shower/Bathe:: 48 hours Diet:: As Tolerated Discharge Orders Discharge Orders: Discharge Order (Routine); Ordered 08/04/23 Ordered By: Anurag Johnson DS: Diagnosis Discharge Diagnosis (1) Trigger finger, left ring finger: Status: Chronic
[2023-08-04] MEDS: Lidocaine 1% Multi-Dose W/EPI 1/100,000 50 ML VIAL (07:35)
[2023-08-04] MEDS: Sodium Bicarbonate 50 MEQ/50 ML VIAL (07:35)
[2023-08-04 07:51] VITALS: BP 143/73; PULSE 63; RESP 20; TEMP 36.4; O2SAT 97
--- NOTE | 2023-08-04 09:25 | W.PM.OP ---
Date of service: 08/04/23 Time of Service: 07:30 Operative Note Operative Note DATE OF PROCEDURE: 08/04/23 PRE-OP DIAGNOSIS: Left Ring Finger Trigger Finger POST-OP DIAGNOSIS: same PROCEDURE: Trigger Finger Release - Left Ring Finger SURGEON: Kannan Mcdonough ANESTHESIA TYPE: Local By Surgeon Refer to Anesthesia Record ESTIMATED BLOOD LOSS: 0 PATHOLOGY: none sent COMPLICATIONS: None Patient was transported to: same day Patient's condition: stable Indications: I have seen Josue in clinic for symptoms of a trigger finger. The catching, clicking, locking, and pain limited function. The diagnosis of trigger finger was evident. The symptoms had not responded to conservative measures. I discussed trigger finger release with the patient. I reviewed the risks of the procedure to include, but not limited to, bleeding, infection, pain, stiffness, incomplete release, damage to nerves or vessels, continued catching, recurrence. Despite these risks, the patient elected to proceed. Findings: There was a tightened A1 antonio which was released. The flexor tendons were inspected and the patient was able to move the finger without any catching, clicking, or locking. Procedure Description: Josue was greeted in the preoperative holding area where the correct side was identified and marked. The consent was reviewed with the patient and signed. All questions were answered. He was taken back to the operating room. The patient was placed into the supine position on the operating room table with the left arm on an arm board. All bony prominences were well padded. No prophylactic antibiotics were administered since this was a clean, elective hand surgical case. The left arm was then prepped with Chloraprep and draped in a standard fashion with stockinette and extremity drape. A timeout to confirm correct identity, side and site, procedure, allergies, anesthesia, and medical concerns was performed. The surgical site was marked as a longitudinal incision directly over the A1 antonio of the involved digit. This was confirmed with palpation during finger flexion. This area, overlying the metacarpal head, was then anesthetized with 1% Lidocaine. The patient tolerated this well and once the anesthetic had setup, the procedure began. A longitudinal incision was made through skin only, approximately 1cm. The deep tissues were dissected bluntly. Once the A1 antonio and flexor tendons were identified the soft tissue including neurovascular structures were retracted medially and laterally. There were no crossing structures over the A1 antonio. The proximal edge of the antonio was identified and the antonio was incised with tenotomy scissors. There was a release of the tendons once this was fully released. The tendons were then removed from the wound and inspected. Excess synovium was resected. The tendons were then returned and the patient was asked to move the finger into deep flexion and back to extension. There was no recreation of the pre-operative symptoms. The hand was then once more inspected for any A0 antonio or area of possible constriction. The wound was then irrigated and the skin was closed with a 4-0 Nylon. This was dressed with gauze and a Conform dressing. The patient tolerated the procedure well and was returned to the Same Day Surgery area in a stable condition suffering no known complication.
== END 2023-08-04 08:21 | disposition home or self-care (01) ==
PROVIDERS: PCP Family Medicine; Visit Provider Student in an Organized Health Care Education/Training Program
PROC: (CPT 26055; principal; 2023-08-04 07:30)
DX: M65.342 Trigger finger, left ring finger (principal); I10 Essential (primary) hypertension; E11.9 Type 2 diabetes mellitus without complications; Z79.84 Long term (current) use of oral hypoglycemic drugs
CPT/HCPCS: 26055

== ENCOUNTER → 2023-08-13 08:52 | Outpatient (BNVA) | payer MEDICARE, BC, SELFPAY | PROVIDERS: PCP Family Medicine; Referring Provider Family Medicine; Visit Provider Student in an Organized Health Care Education/Training Program | DX: Z47.89 Encounter for other orthopedic aftercare (principal); M65.342 Trigger finger, left ring finger ==

== ENCOUNTER → 2023-12-15 14:19 | Outpatient (BNVA) | payer MEDICARE, BC, SELFPAY | PROVIDERS: PCP Family Medicine; Referring Provider Family Medicine; Visit Provider Podiatrist | DX: B07.0 Plantar wart (principal); B35.1 Tinea unguium; M79.672 Pain in left foot; E11.29 Type 2 diabetes mellitus with other diabetic kidney complication; I87.2 Venous insufficiency (chronic) (peripheral) | CPT/HCPCS: 17110; 99213 ==

== ENCOUNTER 2023-12-21 12:09 | Outpatient (CLI) | payer MEDICARE, BC, SELFPAY ==
[2023-12-21 11:02] LABS: ALT 26 U/L (16-63); AST 13 U/L (15-37); Alkaline Phosphatase 47 U/L (46-116); Anion Gap 8.8 mmol/L (3-11); BUN 21 mg/dL (7-18); Bilirubin, Total 0.5 mg/dL (0.2-1.0); CO2 27.2 mmol/L (21.0-32.0); CREATININE 0.9 mg/dL (0.70-1.30); Calcium 9.2 mg/dL (8.5-10.1); Chloride 103 mmol/L (98-107); Estimated GFR 91.31 (mL/min/1.73m2); Glucose 116 mg/dL (74-106); Potassium 4.6 mmol/L (3.5-5.1); Sodium 139 mmol/L (136-145); Total Protein 7.3 g/dL (6.4-8.2)
[2023-12-21 11:05] LABS: Hemoglobin A1C 6.6 % (<5.7)
[2023-12-21 11:58] LABS: COMMENT (LAB VIEW ONLY) 99.64 mg/dL; Microalb ug/mg Crea 49.2 ug/mg Cr
== END 2023-12-21 12:10 | disposition home or self-care (01) ==
LOC: LBO 12:10
PROVIDERS: PCP Family Medicine; Visit Provider Family Medicine
DX: E11.29 Type 2 diabetes mellitus with other diabetic kidney complication; R80.9 Proteinuria, unspecified
CPT/HCPCS: 36415; 80053; 82043; 82570; 83036

== ENCOUNTER 2024-07-14 07:51 | Outpatient (CLI) | payer MEDICARE, BC, SELFPAY ==
[2024-07-14 08:30] LABS: Hemoglobin A1C 6.6 % (<5.7)
[2024-07-14 08:38] LABS: Anion Gap 8.2 mmol/L (3-11); BUN 15 mg/dL (7-18); CO2 28.8 mmol/L (21.0-32.0); CREATININE 1.1 mg/dL (0.70-1.30); Calcium 9.3 mg/dL (8.5-10.1); Calculated LDL 119 mg/dL (<100); Chloride 105 mmol/L (98-107); Cholesterol 210 mg/dL (<200); Estimated GFR 71.77 (mL/min/1.73m2); Glucose 141 mg/dL (74-106); HDL Cholesterol 79 mg/dL (40-60); Sodium 142 mmol/L (136-145); Triglyceride 64 mg/dL (<150)
[2024-07-14 18:34] LABS: PSA, Screening 11.9 ng/mL (<=6.5)
[2024-07-14 19:15] LABS: Hepatitis C Ab w Rflx HCV PCR Negative (Negative)
== END 2024-07-14 07:52 | disposition home or self-care (01) ==
LOC: LBO 07:51
PROVIDERS: PCP Family Medicine; Visit Provider Family Medicine
DX: Z13.6 Encounter for screening for cardiovascular disorders (principal); Z12.5 Encounter for screening for malignant neoplasm of prostate; E11.29 Type 2 diabetes mellitus with other diabetic kidney complication; R80.9 Proteinuria, unspecified; Z11.59 Encounter for screening for other viral diseases; Z13.1 Encounter for screening for diabetes mellitus
CPT/HCPCS: 36415; 80048; 80061; 84153; 86803; 83036

== ENCOUNTER 2024-07-27 18:01 | Outpatient (CLI) | payer MEDICARE, BC, SELFPAY ==
--- NOTE | 2024-07-27 18:15 | DI.RAD_ITS ---
Exam(s) XR CHEST 2V PA LATERAL EXAM: XR CHEST 2V PA LATERAL CLINICAL HISTORY: eval PNA. TECHNIQUE: 2D digital imaging was performed. COMPARISON: CR CHEST 2 VIEWS PA,LAT from 11/03/2016 FINDINGS: 2 views: Heart size is normal. The mediastinum is not widened. Lungs are clear. No infiltrates nor pleural effusions. IMPRESSION: No acute pulmonary findings. DATA REPOSITORY: RADIATION DOSE DELIVERED:
--- NOTE | 2024-07-27 18:40 | DI.VRAD_ITS ---
PROCEDURE INFORMATION: Exam: XR Chest Exam date and time: 07/27/2024 6:23 PM Age: 73 years old Clinical indication: Cough TECHNIQUE: Imaging protocol: Radiologic exam of the chest. Views: 2 views. COMPARISON: No relevant prior studies available. FINDINGS: Lungs: On the lateral view there is the suggestion of possible coarse parenchymal markings at the lung bases not as well appreciated on the frontal view. There may be some very minimal increased markings at the right lung base. Overall the lungs are hyperaerated and hyperlucent with prominent retrosternal airspace consistent with underlying COPD. Pleural spaces: Unremarkable. No pleural effusion. No pneumothorax. Heart/Mediastinum: Unremarkable. No cardiomegaly. Bones/joints: Unremarkable. IMPRESSION: COPD. Possible increased right lung base markings, early consolidation versus atelectasis. Dictated and Authenticated by: Ly Adams MD. Ordering:EVE Maki MD
== END 2024-07-27 18:21 ==
PROVIDERS: PCP Family Medicine; Visit Provider Nurse Practitioner Family
DX: R05.9 Cough, unspecified (principal)
CPT/HCPCS: 71046

== ENCOUNTER 2024-08-01 20:14 | Emergency (ER) | payer MEDICARE, BC, SELFPAY ==
[2024-08-01 20:17] VITALS: BP 135/73; PULSE 75; RESP 18; O2SAT 95
--- NOTE | 2024-08-01 20:18 | ED.GENADUL_ITS ---
Discharge Plan Disposition Patient Disposition: Home Condition: Stable Discharge Details Clinical Impression: Tick bite Primary Care Provider: Luciana Brothers ED Provider: Santosh Tobias Home Meds and New Rx's Prescriptions: Continued (DME) Aerochamber MV Spacer See Rx Instructions .Route Qty: 1 0RF Rx Instructions: As directed benzonatate 100 mg capsule 100 mg PO TID PRN (Reason: cough) 7 Days Qty: 20 0RF amoxicillin 500 mg capsule 1,000 mg PO BID 7 Days Qty: 28 0RF azithromycin 250 mg tablet See Rx Instructions PO .COMPLEX Qty: 6 0RF Rx Instructions: For 250 mg dose pack: take 500 mg today (day 1), then 250 mg for 4 days (days 2-5) PO (DME) Dexcom G7 Sensor Device See Rx Instructions .Route Qty: 1 12RF Rx Instructions: As directed (DME) Dexcom G7 Assistant Purchasing Manager Misc See Rx Instructions .Route Qty: 1 0RF Rx Instructions: As directed (DME) lancets Misc See Rx Instructions .MEDSUPPLY Qty: 100 3RF Rx Instructions: As directed to check daily blood glucose. No insulin. Dispense covered brand. Dx: E11.9 to maintain HbA1c less than 7%. (DME) Blood Glucose Test Strip See Rx Instructions .MEDSUPPLY Qty: 100 3RF Patient Comments: pt. states he has done it once and it was in the 300s Rx Instructions: As directed to check daily blood glucose. No insulin. Dispense covered brand. Dx: E11.9 to maintain HbA1c less than 7%. (DME) blood-glucose meter Misc See Rx Instructions .MEDSUPPLY Qty: 1 0RF Rx Instructions: As directed to check daily blood glucose. No insulin. Dispense covered brand. Dx: E11.9 to maintain HbA1c less than 7%. (DME) pen needle, diabetic [1st Tier Unifine Pentips Plus] 31 gauge x 1/4 needle See Rx Instructions .Route Qty: 100 3RF Rx Instructions: As directed aspirin [Aspir-81] 81 MG tablet,delayed release (DR/EC) 81 mg PO DAILY sertraline 25 mg tablet 25 mg PO DAILY Qty: 90 3RF simvastatin 20 mg tablet 20 mg PO DAILY Qty: 90 3RF amlodipine 5 mg tablet 5 mg PO DAILY Qty: 90 3RF losartan 100 mg tablet 100 mg PO DAILY Qty: 90 3RF acetaminophen 500 mg tablet 1,000 mg PO TID Qty: 90 0RF ibuprofen 600 mg tablet 600 mg PO TID PRN (Reason: pain) Qty: 90 0RF No Action metformin 500 mg tablet extended release 24 hr 1,000 mg PO DAILY Discharge Instructions Instructions: Insect Bites and Stings ED Additional Instructions: You were seen in the emergency department for your tick bite. We are giving the prophylaxis dose of doxycycline one-time dosing. Please take Tylenol and ibuprofen for any aches and pains, return to the ER for any developing fever body aches or bull's-eye rash around the area. Referrals: Luciana Brothers MD [Primary Care Provider] - Discharge Data Discharge Date/Time-TO BE ENTERED AT DEPARTURE: 08/01/24 20:32 HPI General Date/Time Provider Initiated Documentation: 08/01/24 20:18 . HPI Narrative: 73 year-old male presents to ED today by POV/ambulating with a chief complaint of tick bite to right inner thigh, his tried to remove it but he thinks there might be a piece still stuck in there with onset found at 3 AM this morning. Quality described as mild redness at site of bite, no rash, denies systemic involvement, no radiation to fever, body aches, chest pain, palpitation. Severity is described as mild/10. Palliating factors include nothing specific attempted. Provoking factors include nothing specific. Events leading up to the incident/Associated Symptoms: Patient requesting prophylactic doxycycline. Patient not anticoagulated. Related Data Home Medications ?Medication ?Instructions ?Recorded ?Confirmed aspirin 81 mg tablet,delayed 81 mg PO DAILY 12/12/12 08/01/24 release (Aspir-) blood sugar diagnostic (Blood #100 ea 07/27/23 07/21/24 Glucose Test strips) blood-glucose meter #1 ea 07/27/23 07/21/24 blood-glucose meter,continuous #1 ea 07/27/23 07/21/24 (Dexcom G7 Assistant Purchasing Manager) blood-glucose sensor (Dexcom G7 #1 ea 07/27/23 07/21/24 Sensor device) lancets #100 ea 07/27/23 07/21/24 pen needle, diabetic 31 gauge x #100 ea 07/27/23 07/21/2409/30 (1st Tier Unifine Pentips Plus) acetaminophen 500 mg tablet 1,000 mg (2 x 500 mg) PO TID #90 08/04/23 08/01/24 tabs ibuprofen 600 mg tablet 600 mg PO TID PRN pain #90 tabs 08/04/23 08/01/24 sertraline 25 mg tablet 25 mg PO DAILY #90 tabs 08/27/23 08/01/24 simvastatin 20 mg tablet 20 mg PO DAILY #90 tab-caps 03/08/24 08/01/24 amlodipine 5 mg tablet 5 mg PO DAILY #90 tabs 04/20/24 08/01/24 losartan 100 mg tablet 100 mg PO DAILY #90 tab-caps 07/19/24 08/01/24 amoxicillin 500 mg capsule 1,000 mg (2 x 500 mg) PO BID 7 07/27/24 08/01/24 days #28 caps azithromycin 250 mg tablet See Rx Instructions PO .COMPLEX #6 07/27/24 08/01/24 tabs benzonatate 100 mg capsule 100 mg PO TID PRN cough 7 days #20 07/27/24 08/01/24 caps inhalational spacing device #1 ea 07/27/24 07/27/24 (Aerochamber MV spacer) metformin 500 mg tablet,extended 1,000 mg PO DAILY 08/01/24 08/01/24 release 24 hr Previous Rx's ?Medication ?Instructions ?Recorded blood sugar diagnostic (Blood #100 ea 07/27/23 Glucose Test strips) blood-glucose meter #1 ea 07/27/23 blood-glucose meter,continuous #1 ea 07/27/23 (Dexcom G7 Assistant Purchasing Manager) blood-glucose sensor (Dexcom G7 #1 ea 07/27/23 Sensor device) lancets #100 ea 07/27/23 pen needle, diabetic 31 gauge x #100 ea 07/27/2309/30 (1st Tier Unifine Pentips Plus) acetaminophen 500 mg tablet 1,000 mg (2 x 500 mg) PO TID #90 08/04/23 tabs ibuprofen 600 mg tablet 600 mg PO TID PRN pain #90 tabs 08/04/23 sertraline 25 mg tablet 25 mg PO DAILY #90 tabs 08/27/23 simvastatin 20 mg tablet 20 mg PO DAILY #90 tab-caps 03/08/24 amlodipine 5 mg tablet 5 mg PO DAILY #90 tabs 04/20/24 losartan 100 mg tablet 100 mg PO DAILY #90 tab-caps 07/19/24 amoxicillin 500 mg capsule 1,000 mg (2 x 500 mg) PO BID 7 07/27/24 days #28 caps azithromycin 250 mg tablet See Rx Instructions PO .COMPLEX #6 07/27/24 tabs benzonatate 100 mg capsule 100 mg PO TID PRN cough 7 days #20 07/27/24 caps inhalational spacing device #1 ea 07/27/24 (Aerochamber MV spacer) Allergies Allergy/AdvReac Type Severity Reaction Status Date / Time No Known Allergies Allergy Verified 08/01/24 20:29 General JANELL: 4 Review of Systems All systems reviewed & are unremarkable except as noted in HPI and below Exam Narrative Exam Narrative: GENERAL APPEARANCE: Well-nourished, non-toxic, awake and alert, atraumatic, no acute distress. SKIN: Warm, pink, dry, minor erythema at site of tick bite R medial thigh without erythema migrans, no evidence of cellulitis or abscess HEAD: Normocephalic, atraumatic, normal hair distribution for gender/age. EYES: Normal conjunctiva, no exudates on lids/lashes. ENT: Nares patent, no circumoral cyanosis, no facial swelling NECK: Supple, trachea midline, painless cervical ROM. LUNGS/CHEST: Lungs CTA bilaterally, non-labored respirations, normal A/P diameter, symmetrical expansion, no chest wall deformity HEART (CV/PV): Regular rate and rhythm without murmur, no peripheral edema, no JVD. ABDOMEN: Soft, non-distended, no guarding. MSK: Normal ROM, no swelling/deformity to bilateral UEs or LEs, moving all extremities without weakness, no cyanosis, spine midline without tenderness, normal curvature. NEURO: Mental Status AAOx4 - alert to person, place, time, events No facial droop, no forehead involvement. Motor: No focal weakness - strength 5/5 in bilateral UEs and LEs, proximal and distal, symmetric. Sensory: sensation intact to light touch globally. Gait normal: patient ambulated without ataxia into ED room. PSYCH: euthymic, cooperative, pleasant, appropriate speech Medical Decision Making This dictation utilizes [id number] dictation software and may contain unedited grammatical errors. 73 year-old male presents to ED today by POV/ambulating with a chief complaint of tick bite to right inner thigh, his tried to remove it but he thinks there might be a piece still stuck in there with onset found at 3 AM this morning. Quality described as mild redness at site of bite, no rash, denies systemic involvement, no radiation to fever, body aches, chest pain, palpitation. Severity is described as mild/10. Palliating factors include nothing specific attempted. Provoking factors include nothing specific. Events leading up to the incident/Associated Symptoms: Patient requesting prophylactic doxycycline. Patients' medical history: Noncontributory. Family and social hi story: Noncontributory. Pertinent exam findings / vital signs include minor erythema at site of tick bite without erythema migrans, no evidence of cellulitis or abscess. Differential / pathologies of concern include tick bite. Diagnostic studies of: -None. Interventions of: -200 mg prophylactic doxycycline. ED Course/Assessment/Plan: 73-year-old male presents to the tick bite to his left medial thigh, his attempted to remove the tick and cannot visualize a definitive piece of the tick at the bite site, counseled that any small piece would work its way out, counseled him on cleaning the area aggressively and monitoring himself for signs of Lyme disease including bull's-eye rash, fever, body aches send I did provide 200 mg doxycycline dose. Findings not consistent with Lyme disease, cellulitis or abscess. Disposition of tick bite. Patient verbalized understanding of the plan and return to ED criteria and engaged in shared decision making. Medical Records Medical records reviewed: Yes I reviewed the patient's medical records. 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 of hands, bilateral (Chronic) Essential hypertension (Chronic 07/26/15) Hypercholesterolemia (Chronic 12/15/12) Medical History Heavy alcohol consumption reports less than 3 drinks / day; quit 07/27/2023 Trigger finger, left ring finger injection: 10/26/2022; 10/29/2021 Right calf pain was torn gastrocnemius muscle Surgical History S/P trigger finger release Ganglion cyst of volar aspect of right wrist S/P Excision: 12/02/2021 History of eyelid surgery bilateral Status post umbilical hernia repair, follow-up exam Family History Mother , 79 Stroke Father , 79 Alcohol use disorder Son No problems noted. Son No problems noted. Daughter No problems noted. 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 Pets and animals: No Sexually active: No Do you think of yourself as: straight/heterosexual Current gender identity: male What is your relationship status?: How often do you talk on the phone with friends or family?: decline to answer How often do you get together with friends or relatives?: decline to answer How often do you attend sabianism or anabaptism services?: decline to answer Do you belong to any clubs or organized social groups?: decline to answer Panel score (0-1 are the most socially isolated patients): 1 What type of physical activity do you participate in: walking Duration: 30-45 minutes/day Frequency: 3-4 times per week Miriam/Confucianism: Jainism Seatbelt use: always Drive intox or ride w/intox driver material handler: No Do you feel safe at home: Yes Do you feel safe in your relationship?: Yes
[2024-08-01] MEDS: Doxycycline Hyclate 100 MG CAP 200 MG PO (20:28)
== END 2024-08-01 20:32 | disposition home or self-care (01) ==
PROVIDERS: Emergency Provider Physician Assistant; PCP Family Medicine
DX: S70.361A Insect bite (nonvenomous), right thigh, initial encounter (principal); E11.9 Type 2 diabetes mellitus without complications; I10 Essential (primary) hypertension; Z79.82 Long term (current) use of aspirin; Z79.84 Long term (current) use of oral hypoglycemic drugs; W57.XXXA Bitten or stung by nonvenomous insect and other nonvenomous arthropods, initial encounter; Y93.89 Activity, other specified
CPT/HCPCS: 99283

== ENCOUNTER 2025-01-15 07:38 | Outpatient (CLI) | payer MEDICARE, BC, SELFPAY ==
[2025-01-15 07:56] LABS: Hemoglobin A1C 7.8 % (<5.7)
[2025-01-15 08:06] LABS: Anion Gap 8.6 mmol/L (3-11); BUN 15 mg/dL (7-18); CO2 25.4 mmol/L (21.0-32.0); CREATININE 1.1 mg/dL (0.70-1.30); Calcium 9.2 mg/dL (8.5-10.1); Chloride 104 mmol/L (98-107); Estimated GFR 71.32 (mL/min/1.73m2); Glucose 186 mg/dL (74-106); Potassium 4.7 mmol/L (3.5-5.1); Sodium 138 mmol/L (136-145)
[2025-01-15 08:09] LABS: COMMENT (LAB VIEW ONLY) 127.68 mg/dL
[2025-01-15 08:11] LABS: Microalb ug/mg Crea 154.2 ug/mg Cr
== END 2025-01-15 07:39 | disposition home or self-care (01) ==
LOC: LBO 07:38
PROVIDERS: PCP Family Medicine; Visit Provider Family Medicine
DX: E11.9 Type 2 diabetes mellitus without complications (principal); E11.29 Type 2 diabetes mellitus with other diabetic kidney complication; R80.9 Proteinuria, unspecified
CPT/HCPCS: 36415; 80048; 82043; 82570; 83036

== ENCOUNTER 2025-01-19 11:00 | Outpatient (CLI) | payer MEDICARE, BC, SELFPAY ==
[2025-01-19 18:18] LABS: PSA, Diagnostic 9.8 ng/mL (<=6.5)
== END 2025-01-19 11:01 | disposition home or self-care (01) ==
PROVIDERS: PCP Family Medicine; Visit Provider Family Medicine
DX: R97.20 Elevated prostate specific antigen [PSA] (principal)
CPT/HCPCS: 36415; 84153

== ENCOUNTER → 2025-03-06 13:58 | Outpatient (BNVA) | payer MEDICARE, BC, SELFPAY | PROVIDERS: PCP Family Medicine; Referring Provider Family Medicine; Visit Provider Nurse Practitioner Gerontology | DX: N40.2 Nodular prostate without lower urinary tract symptoms (principal); R97.20 Elevated prostate specific antigen [PSA]; R39.11 Hesitancy of micturition; E11.59 Type 2 diabetes mellitus with other circulatory complications; I10 Essential (primary) hypertension | CPT/HCPCS: 99215 ==

== ENCOUNTER → 2025-04-05 14:52 | Outpatient (BNVA) | payer MEDICARE, BC, SELFPAY | PROVIDERS: PCP Family Medicine; Referring Provider Family Medicine; Visit Provider Nurse Practitioner Gerontology | DX: N40.2 Nodular prostate without lower urinary tract symptoms (principal); R97.20 Elevated prostate specific antigen [PSA] | CPT/HCPCS: 99214 ==

== ENCOUNTER → 2025-04-16 12:54 | Outpatient (BNVA) | payer MEDICARE, BC, SELFPAY | PROVIDERS: PCP Family Medicine; Referring Provider Family Medicine; Visit Provider Urology | DX: N40.2 Nodular prostate without lower urinary tract symptoms (principal); R97.20 Elevated prostate specific antigen [PSA] | CPT/HCPCS: 55700; 76872 ==

== ENCOUNTER 2025-04-16 14:32 | Outpatient (REF) | payer MEDICARE, BC, SELFPAY ==
--- NOTE | 2025-04-16 13:20 | PROST_PTH ---
PATIENT: Josue Ann LOC: [facility] U#:[id number] AGE/SX: 74/M ROOM: RE04/16/[address]: Nestor Dalal MD : 1950 BED: DIS: 04/16/2025 SPEC #: [id number] RECD: 04/16/25 17:59 STATUS: VICKI RE #: [id number] RACIEL: 04/16/25 13:[address]: Nestor Dalal DEPT: Surgical Specimen RECD BY: Chantelle Dobbins ENTERED: 04/16/25 18:01 SP TYPE: PROST OTHR DR: Luciana Brothers Tissues: 1 - PROSTATE NEEDLE BIOPSY 2 - PROSTATE NEEDLE BIOPSY 3 - PROSTATE NEEDLE BIOPSY 4 - PROSTATE NEEDLE BIOPSY 5 - PROSTATE NEEDLE BIOPSY 6 - PROSTATE NEEDLE BIOPSY 7 - PROSTATE NEEDLE BIOPSY 8 - PROSTATE NEEDLE BIOPSY 9 - PROSTATE NEEDLE BIOPSY 10 - PROSTATE NEEDLE BIOPSY 11 - PROSTATE NEEDLE BIOPSY 12 - PROSTATE NEEDLE BIOPSY Procedures: GROSS AND MICRO LEVEL 4 IMMUNOPEROXIDASE STAIN Comments: [id number]
== END 2025-04-16 14:33 | disposition home or self-care (01) ==
LOC: LBN 14:32
PROVIDERS: PCP Family Medicine; Visit Provider Urology
DX: C61 Malignant neoplasm of prostate (principal); R97.20 Elevated prostate specific antigen [PSA]; N42.31 Prostatic intraepithelial neoplasia
CPT/HCPCS: 88305; 88361

== ENCOUNTER → 2025-05-04 10:52 | Outpatient (BNVA) | payer MEDICARE, BC, SELFPAY | PROVIDERS: PCP Family Medicine; Referring Provider Family Medicine; Visit Provider Urology | DX: C61 Malignant neoplasm of prostate (principal) | CPT/HCPCS: 99215 ==

== ENCOUNTER → 2025-06-19 12:52 | Outpatient (BNVA) | payer MEDICARE, BC, SELFPAY | PROVIDERS: PCP Family Medicine; Referring Provider Family Medicine; Visit Provider Urology | DX: C61 Malignant neoplasm of prostate (principal) | CPT/HCPCS: 99214 ==

== ENCOUNTER 2025-09-26 11:33 | Outpatient (CLI) | payer MEDICARE, BC, SELFPAY ==
[2025-09-26 14:04] LABS: Hemoglobin A1C 7.6 % (<5.7)
== END 2025-09-26 11:34 | disposition home or self-care (01) ==
LOC: LBO 11:36
PROVIDERS: Nurse Practitioner Family; PCP Family Medicine; Visit Provider Urology
DX: E11.29 Type 2 diabetes mellitus with other diabetic kidney complication (principal); R80.9 Proteinuria, unspecified
CPT/HCPCS: 36415; 83036